=== PATIENT | male | born 1950 | race Caucasian/White ===

== ENCOUNTER 2017-07-27 05:15 | Emergency (ER) | payer MEDICARE, MEDICAID ==
[~2017-07-27] VITALS: Ht 177.8 cm; Wt 70.8 kg
[2017-07-27] MEDS ORDERED: ONDANSETRON PF 4 MG/2 ML VIAL. IV ONE (06:15)
[2017-07-27] MEDS ORDERED: fentaNYL PF VIAL 100 MCG/2 ML VIAL IV ONE (06:15)
--- NOTE | 2017-07-27 06:32 | EKG ---
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
[2017-07-27 06:58] LABS: BASO % 0 % (0-3); CALCIUM 8.6 mg/dL (8.5-10.1); CREATININE 1.1 mg/dL (0.7-1.3); EOS % 1 % (0-3); GFR 66.6; HEMATOCRIT 32.1 % (39.0-53.0); HEMOGLOBIN 10.7 g/dL (13.0-17.5); LYMPH # 0.8 x10^3/uL (1.0-4.8); LYMPH % 9 % (24-48); MEAN CORPUSCULAR HEMOGLOBIN 28 pg (25-35); MEAN CORPUSCULAR HGB CONC 33 g/dL (31-37); MEAN CORPUSCULAR VOLUME 85 fL (79-100); MONO % 6 % (0-9); NEUT % 83 % (31-73); PLATELET COUNT 206 x10^3/uL (140-400); POTASSIUM 4.2 mmol/L (3.5-5.1); RED BLOOD COUNT 3.77 x10^6/uL (4.30-5.70); RED CELL DISTRIBUTION WIDTH 13.6 % (11.5-14.5); WHITE BLOOD COUNT 8.8 x10^3/uL (4.0-11.0)
[2017-07-27 07:06] LABS: ALBUMIN 3.1 g/dL (3.4-5.0); ALBUMIN/GLOBULIN RATIO 0.7 (1.0-1.7); TOTAL BILIRUBIN 0.3 mg/dL (0.2-1.0); TOTAL PROTEIN 7.4 g/dL (6.4-8.2)
[2017-07-27] MEDS ORDERED: IOHEXOL 300 MG/ML 100ML VIAL. IV ONE (07:15)
--- NOTE | 2017-07-27 07:27 | PHYS DOC ---
Past Medical History Past Medical History: High Cholesterol, Hypertension Past Surgical History: Coronary Bypass Surgery Alcohol Use: None Drug Use: None Adult General Chief Complaint Chief Complaint: SHORTNESS OF BREATH HPI HPI Patient is a 66 year old male presents with right lower anterior chest wall pain and shortness of breath. Patient was walking yesterday and tripped landing while walking up steps landing on his torso. Denies hitting his head. Denies headache and neck pain. He is not on anticoagulation therapy. Patient has light bruising over his anterior chest and right lower rib pain, tenderness worse with inspiration and palpation. Denies abdominal pain. No fever chills sweats. No flank pain. No extremity pain or injury. No other symptoms or complaints. Patient's taken [id number] pain medication without relief. Review of Systems Review of Systems All other systems were reviewed and found to be within normal limits, except as documented in this note. Current Medications Current Medications Current Medications Medications (Trade) Dose Ordered Sig/Hyun Start Time Stop Time Status Last Admin Dose Admin Fentanyl Citrate (Fentanyl 2ml Vial) 75 mcg 1X ONCE 07/27/17 06:15 07/27/17 06:16 DC 07/27/17 06:46 75 MCG Furosemide (Lasix) 20 mg 1X ONCE 07/27/17 07:30 07/27/17 07:31 DC 07/27/17 07:48 20 MG Info (Do NOT chart on this entry -- for MONITORING) 1 each PRN DAILY PRN 07/27/17 07:30 07/27/17 09:25 DC Iohexol (Omnipaque 300 Mg/ml) 75 ml 1X ONCE 07/27/17 07:15 07/27/17 07:16 DC 07/27/17 07:32 75 ML Ondansetron HCl (Zofran) 4 mg 1X ONCE 07/27/17 06:15 07/27/17 06:16 DC 07/27/17 06:46 4 MG Allergies Allergies Allergies Coded Allergies Type Severity Reaction Last Updated Verified No Known Drug Allergies 07/27/17 No Physical Exam Physical Exam Constitutional: Well developed, well nourished, moderate discomfort secondary to pain. Non-toxic appearance. [] HENT: Normocephalic, atraumatic, bilateral external ears normal, oropharynx moist, no oral exudates, nose normal. [] Eyes: PERRLA, EOMI, conjunctiva normal, no discharge. [] Neck: Normal range of motion, no tenderness, supple, no stridor. [] Cardiovascular:Heart rate regular rhythm, no murmur [] Lungs & Thorax: Aspirations nonlabored, rales in right lower lung isabel. Lately bruising over anterior chest wall. No bony crepitus or subcutaneous emphysema.[] Abdomen: Bowel sounds normal, soft, no tenderness, no masses, no pulsatile masses. [] Skin: Warm, dry, no erythema, no rash. [] Extremities: No tenderness, no cyanosis, no clubbing, ROM intact, no edema. [] Neurologic: Alert and oriented X 3, normal motor function, normal sensory function, no focal deficits noted. [] Psychologic: Affect normal, judgement normal, mood normal. [] Current Patient Data Vital Signs Vital Signs Date Time Temp Pulse Resp B/P (MAP) Pulse Ox O2 Delivery O2 Flow Rate FiO2 07/27/17 08:07 65 17 111/56 (74) 98 Nasal Cannula 2.0 07/27/17 05:21 98.8 98.8 Lab Values Laboratory Tests Test 07/27/17 06:30 White Blood Count 8.8 x10^3/uL (4.0-11.0) Red Blood Count 3.77 x10^6/uL (4.30-5.70) L Hemoglobin 10.7 g/dL (13.0-17.5) L Hematocrit 32.1 % (39.0-53.0) L Mean Corpuscular Volume 85 fL (79-100) Mean Corpuscular Hemoglobin 28 pg (25-35) Mean Corpuscular Hemoglobin Concent 33 g/dL (31-37) Red Cell Distribution Width 13.6 % (11.5-14.5) Platelet Count 206 x10^3/uL (140-400) Neutrophils (%) (Auto) 83 % (31-73) H Lymphocytes (%) (Auto) 9 % (24-48) L Monocytes (%) (Auto) 6 % (0-9) Eosinophils (%) (Auto) 1 % (0-3) Basophils (%) (Auto) 0 % (0-3) Neutrophils # (Auto) 7.4 x10^3uL (1.8-7.7) Lymphocytes # (Auto) 0.8 x10^3/uL (1.0-4.8) L Monocytes # (Auto) 0.5 x10^3/uL (0.0-1.1) Eosinophils # (Auto) 0.1 x10^3/uL (0.0-0.7) Basophils # (Auto) 0.0 x10^3/uL (0.0-0.2) Sodium Level 142 mmol/L (136-145) Potassium Level 4.2 mmol/L (3.5-5.1) Chloride Level 104 mmol/L (98-107) Carbon Dioxide Level 28 mmol/L (21-32) Anion Gap 10 (6-14) Blood Urea Nitrogen 14 mg/dL (8-26) Creatinine 1.1 mg/dL (0.7-1.3) Estimated GFR (Cockcroft-Gault) 66.6 BUN/Creatinine Ratio 13 (6-20) Glucose Level 153 mg/dL (70-99) H Calcium Level 8.6 mg/dL (8.5-10.1) Total Bilirubin 0.3 mg/dL (0.2-1.0) Aspartate Amino Transferase (AST) 20 U/L (15-37) Alanine Aminotransferase (ALT) 24 U/L (16-63) Alkaline Phosphatase 91 U/L (46-116) Creatine Kinase 72 U/L (39-308) Troponin I Quantitative < 0.017 ng/mL (0.000-0.055) PS-Rvo-B-Type Natriuretic Peptide 771 pg/mL (0-124) H Total Protein 7.4 g/dL (6.4-8.2) Albumin 3.1 g/dL (3.4-5.0) L Albumin/Globulin Ratio 0.7 (1.0-1.7) L Laboratory Tests 07/27/17 06:30 Laboratory Tests 07/27/17 06:30 EKG EKG [] Radiology/Procedures Radiology/Procedures [Chest x-ray: R pleural effusion. Right pleural effusion. CT chest abdomen pelvis: Nondisplaced acute anterior right rib fracture, small pleural effusion, patchy ground glass nodular opacities in the deep in the lower lobes mild mediastinal and right hilar lymphadenopathy: Right renal lesion with cystic lesion, malignancy not excluded.] Course & Med Decision Making Course & Med Decision Making Pertinent Labs and Imaging studies reviewed. (See chart for details) [Mechanical fall with nondisplaced right rib fracture. Multiple incidental findings noted on CT of the chest abdomen pelvis and abnormal lab. I discussed with patient at length and in detail about possibilities including underlying carcinoma. Patient expressed understanding of these concerns and agrees to follow-up with his PCP for further testing.. Patient increased verbalizes understanding with discharge instructions prior to departure.] Dragon Disclaimer Dragon Disclaimer This electronic medical record was generated, in whole or in part, using a voice recognition dictation system. Departure Departure Impression: Primary Impression: Right rib fracture Additional Impressions: Pleural effusion Abnormal CT of the abdomen Abnormal CT of the chest Disposition: HOME, SELF-CARE Condition: STABLE Referrals: KELLIE SHETH MD (PCP) Problem Qualifiers ALONSO ROSALES DO Jul 27, 2017 07:27
[2017-07-27] MEDS ORDERED: FUROSEMIDE 20 MG/2 ML VIAL. IVP ONE (07:30)
[2017-07-27] MEDS ORDERED: CONTRAST GIVEN MC PRN (07:30)
--- NOTE | 2017-07-27 08:05 | RAD ---
Single view of the Chest 07/27/2017 8:03 AM Indication: Shortness of breath Comparison: None Findings: No pneumothorax is identified. There is blunting of the right costophrenic angle which could represent small effusion, atelectasis, or scarring. Heart size is mildly enlarged. Prior median sternotomy is noted. Superior mediastinum is normal in thickness. A lordotic projection is noted. No acute osseous abnormalities are identified. Impression: Blunting of the right costophrenic angle which could represent small effusion, atelectasis, or scarring.
[2017-07-27 08:07] VITALS: BP 111/56
--- NOTE | 2017-07-27 08:19 | RAD ---
CT chest, abdomen and pelvis with contrast 07/27/2017 Clinical indication: Fall with rib pain. Technique: Multiple CT images of the chest, abdomen and pelvis were obtained following the intravenous and ministration of 75 mL Omnipaque 300. PQRS Compliance Statement: One or more of the following individualized dose reduction techniques were utilized for this examination: 1. Automated exposure control 2. Adjustment of the mA and/or kV according to patient size 3. Use of iterative reconstruction technique Findings: Chest: Prior median sternotomy and CABG. Three-vessel [place] coronary artery calcifications. The thoracic aorta is normal caliber with mild scattered calcified atheromatous disease. No axillary lymphadenopathy. Mildly enlarged precarinal lymph node measuring 1.4 cm series 2/image 24. Mildly enlarged right hilar lymph node measuring 1.1 cm series 2/28 mildly enlarged subcarinal lymph node measuring 1.3 cm series 2/image 29. The central airways are patent. There is a calcified granuloma in the right lower lobe. There is a small right pleural effusion. There are patchy groundglass and nodular opacities in the dependent lower lobes. No left pleural effusion or pneumothorax. There are bilateral calcified pleural plaques. There is a nondisplaced right anterior sixth rib fracture deformity. Abdomen and pelvis: Liver, gallbladder, spleen, adrenal glands, pancreas and left kidney are unremarkable. There is an exophytic mixed cystic mass with eccentric high density component measuring 2.5 x 1.6 cm series 4/image 33. Abdominal aorta is normal in caliber with mild aortoiliac calcified atheromatous disease. Small and large bowel loops are normal in caliber without obstruction. Appendix is normal in appearance. There is moderate descending and sigmoid diverticulosis without diverticulitis. No abdominal free fluid. No retroperitoneal or mesenteric lymphadenopathy. Mildly distended and unopacified urinary bladder unremarkable. Prostate seminal vesicles are present. No iliac or inguinal lymphadenopathy. No pelvic free fluid. There graft there are no destructive osseous lesions. Impression: Chest: 1. Nondisplaced acute appearing anterior right rib fracture deformity. Correlation with point tenderness is recommended. 2. Small right pleural effusion. 3. Patchy groundglass and nodular opacities in the deep and lower lobes, may represent aspiration or multifocal infection. 4. Mild mediastinal and right hilar lymphadenopathy, indeterminate. Follow-up CT chest is recommended. Abdomen and pelvis: 1. Right renal lesion with cystic and high density component measuring up to 2.5 cm. Internal high density is indeterminate between a primary renal malignancy such as renal cell carcinoma versus intracyst hemorrhage. CT or MR renal protocol is recommended for further evaluation. 2. No evidence of acute abdominopelvic visceral injury or hemoperitoneum. 3. Distal colonic diverticulosis without diverticulitis. These results were discussed with Dr. Siegel of the emergency service by telephone at 8:15 AM 07/27/[address] Parminder Hogan.
== END 2017-07-27 09:23 | disposition home or self-care (01) ==
LOC: ER 05:15
DX: S22.31XA Fracture of one rib, right side, initial encounter for closed fracture (principal); J90 Pleural effusion, not elsewhere classified; R93.5 Abnormal findings on diagnostic imaging of other abdominal regions, including retroperitoneum; R91.8 Other nonspecific abnormal finding of lung field; E78.00 Pure hypercholesterolemia, unspecified; I10 Essential (primary) hypertension; Z95.1 Presence of aortocoronary bypass graft; W01.198A Fall on same level from slipping, tripping and stumbling with subsequent striking against other object, initial encounter; Y93.01 Activity, walking, marching and hiking; Y92.89 Other specified places as the place of occurrence of the external cause; Y99.8 Other external cause status
CPT/HCPCS: 36415; 71010; 71260; 74177; 80053; 82550; 83880; 84484; 85025; 87040; 93005; 96374; 96375; 99285; J2405; J3010; Q9967